=== PATIENT | female | born 1955 | race Caucasian/White ===

== ENCOUNTER → 2021-08-02 09:25 | Outpatient (BNVA) | payer MEDICAID, SELFPAY | PROVIDERS: Visit Provider Nurse Practitioner Family | DX: G62.9 Polyneuropathy, unspecified (principal); J44.9 Chronic obstructive pulmonary disease, unspecified; Z78.0 Asymptomatic menopausal state; F41.9 Anxiety disorder, unspecified; F32.4 Major depressive disorder, single episode, in partial remission; Z12.31 Encounter for screening mammogram for malignant neoplasm of breast; Z13.820 Encounter for screening for osteoporosis; Z12.11 Encounter for screening for malignant neoplasm of colon; F17.200 Nicotine dependence, unspecified, uncomplicated; Z76.89 Persons encountering health services in other specified circumstances | CPT/HCPCS: 80053; 80061; 82306; 84443 ==

== ENCOUNTER → 2021-11-27 08:49 | Outpatient (BNVA) | payer MEDICAID, SELFPAY | PROVIDERS: PCP Nurse Practitioner Family; Visit Provider Nurse Practitioner Family | DX: E78.00 Pure hypercholesterolemia, unspecified (principal); G62.9 Polyneuropathy, unspecified; J44.9 Chronic obstructive pulmonary disease, unspecified | CPT/HCPCS: 80053; 80061 ==

== ENCOUNTER → 2022-05-15 09:50 | Outpatient (BNVA) | payer MEDICARE, MEDICAID, SELFPAY | PROVIDERS: PCP Nurse Practitioner Family; Visit Provider Nurse Practitioner Family | DX: F41.9 Anxiety disorder, unspecified (principal); E55.9 Vitamin D deficiency, unspecified; G62.9 Polyneuropathy, unspecified; E78.00 Pure hypercholesterolemia, unspecified; F32.4 Major depressive disorder, single episode, in partial remission; J44.9 Chronic obstructive pulmonary disease, unspecified; Z71.89 Other specified counseling; M54.9 Dorsalgia, unspecified | CPT/HCPCS: 80053; 80061 ==